=== PATIENT | female | born 1990 | race Caucasian/White ===

== ENCOUNTER 2018-07-27 20:24 | Emergency (ER) | payer OTHER | END 2018-07-27 22:10 | disposition home or self-care (01) | LOC: E/R 22:10 | DX: S60.221A Contusion of right hand, initial encounter (principal); J02.9 Acute pharyngitis, unspecified; W18.39XA Other fall on same level, initial encounter; Y92.9 Unspecified place or not applicable | CPT/HCPCS: 73130; 73130-RT; 99283-25 ==